=== PATIENT | male | born 1990 | race Caucasian/White ===

== ENCOUNTER 2017-09-18 22:33 | Emergency (ER) | payer OTHER ==
[~2017-09-18] VITALS: Ht 167.6 cm; Wt 70.3 kg
[2017-09-19] MEDS ORDERED: DICLOFENAC POTA50 MG PO (00:32)
== END 2017-09-19 01:00 | disposition home or self-care (01) ==
LOC: ER 22:33
DX: R68.84 Jaw pain (principal)